=== PATIENT | male | born 1980 | race Caucasian/White ===

== ENCOUNTER 2018-03-09 23:18 | Observation (INO) ==
[2018-03-10] MEDS ORDERED: D5% in 0.45% NACL 1,000 ML IVC PRN (00:06)
[2018-03-10] MEDS ORDERED: Acetaminophen 325 MG TABLET PO PRN (00:06)
[2018-03-10] MEDS ORDERED: Ondansetron 4 MG/2 ML VIAL IVP PRN (00:06)
[2018-03-10] MEDS ORDERED: *HR* Dextrose 50 % in Water (Syg) 50 ML SYRINGE IVP PRN ×2 (00:06→02:28)
[2018-03-10] MEDS ORDERED: Naloxone 0.4 MG/ML INJ IVP PRN (00:06)
[2018-03-10] MEDS ORDERED: D5% in 0.45% NACL w KCl 20 MEQ/1,000 ML MLS IVC PRN (00:06)
--- NOTE | 2018-03-10 00:06 | Internal Med History&Physical ---
Date of Encounter: 03/10/18 Time of Encounter: 00:03 Internal Medicine - H&P: HPI Chief complaint: High blood glucose Admitted From: Intrahospital Transfer ([facility]) History of present illness: Mr. Downing is a 37 year old male with a PMH of type 2 diabetes and tobacco dependence who was transferred from [facility] secondary to DKA. Patient reports being out of his insulin for 2 weeks now and has not gotten around to calling his PCP office for a refill on this insulin because "he has not felt like it". He reports associated nausea and chills for a few days. He also reports 45 lbs weight loss in the past 1 month due to decreased appetite. Patient denies suicidal ideation, fever, SOB, CP, abd pain, diarrhea, constipation, prior episodes of DKA, night sweats, sick contacts, history of HIV exposure, recent incarceration, or recent illness. Past Med Surg Social Fam HX - Past Medical History Medical history: diabetes, hepatitis ( Hepatitis C has been treated and cured), migraine Additional medical history: TBI, deaf in right ear, Electocuted, Right forearm amputated, Broken neck x3 places, L leg broken 1999, MSSA Psychiatric history: anxiety, depression, PTSD - Past Surgical History Surgical History: other (Multiple orthopedic surgeries) Additional surgical history: right forearm amputation, head sx, nerve graft to neck & arms, Nerve graft right orthodoxy, Right eye surgery double vision, Skin graft, Bone graft right ankle, Ankle fx. with hardware - Social History Smoking Status: Current every day smoker Smokeless Tobacco Status: No Alcohol use: none Drug use: marijuana Current living situation: Home Activity Level: Independent ambulation - Family History Father Hx Family Cardiac Disorders: Yes (HTN) Mother Hx Family Cardiac Disorders: Yes (HTN) Internal Medicine - H&P: Meds OxyCODONE/APAP 7.5/325 [Percocet 7.5/325] 2 each PO Q6HR 04/09/15 [History] Pregabalin [Lyrica] 300 mg PO BID 04/09/15 [History] clonazePAM [Clonazepam] 0.5 mg PO BID 12/27/17 [History] Metformin HCl [Glucophage] 1,000 mg PO BID 01/02/18 [History] Insulin NPH/REG 70/30 [HumuLIN 70/30 VIAL] 0 unit SQ BIDWM 03/09/18 [History] 3 Allergy/AdvReac Type Severity Reaction Status Date / Time No Known Allergies Allergy Verified 01/02/18 00:49 All Systems PM: A 10-system review of systems was performed and is negative for pertinent findings except as documented above in the HPI. - Constitutional Constitutional: anorexia, chills, fatigue, lethargy, weight loss, no fever(s), no night sweats - EENT Eyes: no blurry vision, no change in vision Nose, mouth and throat: no sinus pain, no sore throat - Cardiovascular Cardiovascular ROS IM: no chest pain, no dyspnea, no dyspnea on exertion, no edema, no orthopnea, no palpitations - Respiratory Respiratory: no cough, no wheezing, no chest congestion - Gastrointestinal Gastrointestinal: nausea, no abdominal pain, no diarrhea, no vomiting - Genitourinary Genitourinary ROS male: no dysuria, no urinary frequency, no urinary urgency - Musculoskeletal Musculoskeletal ROS IM: no numbness, no tingling - Integumentary Integumentary IM: no erythema, no rash - Neurological Neurological ROS: no numbness, no tingling - Psychiatric Psychiatric: no anxiety, no depression, no suicidal ideation - Endocrine Endocrine IM: fatigue, no polydipsia, no polyphagia, no polyuria - Hematologic/Lymphatic Hematologic/Lymphatic: no easy bleeding, no easy bruising - Constitutional General appearance: Present: cachectic, mild distress, A&O X 3, answers questions appropriately Exam: ill appearing, lethargic, arousable - Head Head exam: Present: atraumatic Additional comments: temporal wasting - Eye Eye exam: Present: EOMI, conjuntiva pink, sclera anicteric - ENT ENT exam: Present: mucous membranes dry, normal oropharynx - Neck Neck exam general surgery: Present: normal inspection, supple, trachea midline. Absent: lymphadenopathy - Respiratory Respiratory exam: Present: CTAB. Absent: accessory muscle use, rales, respiratory distress, rhonchi, wheezes - Cardiovascular Cardiovascular exam: Present: RRR, +S1, +S2. Absent: diastolic murmur, gallop, rubs, systolic murmur - GI/Abdominal GI/Abdominal exam: Present: normal bowel sounds, soft, no peritoneal signs. Absent: distended, tenderness - Extremities Exam Extremities exam: Present: warm, radial pulses palpable and symmetrical. Absent : calf tenderness, cyanotic, pedal edema Additional comments: loss of subcuticular fat, loss of muscle mass - Back Exam Back exam: Absent: paraspinal tenderness, tenderness - Neurological Exam Neurological exam: Present: CN II-XII intact, oriented X3, no focal deficits. Absent: pronater drift, facial droop, speech deficit - Psychiatric Psychiatric exam: Present: depressed, flat affect - Skin Skin exam: Present: dry, intact. Absent: erythema, rash Internal Med - H&P Results - Labs CBC & Chem 7: 03/10/18 01:41 - Pulse Oximetry Interpretation Digit-Finger O2 Sat by Pulse Oximetry: 100 (On RA) - Assessment and plan (1) Severe protein-calorie malnutrition Current Visit: Yes Status: Acute Assessment and plan: Patient with temporal wasting, loss of subcuticular fat, loss of muscle mass, 45 lbs weight loss in the past 1 month due to decreased appetite, insufficient energy intake Nutrition consulted for dietary supplementation (2) DKA (diabetic ketoacidoses) Current Visit: No Status: Resolved Assessment and plan: Started on Insulin drip at [facility] Beta-Hydroxybutyric Acid elevated > 2, Initial anion gap 16, repeat anion gap 8 closed, started Levemir 1 hour before stopping insulin drip Continue close monitoring, Monitor BMP and accuchecks, Supplement potassium as needed Qualifiers: Diabetes mellitus type: type 2 Diabetes mellitus complication detail: without coma Qualified Code(s): E11.10 - Type 2 diabetes mellitus with ketoacidosis without coma (3) Diabetes mellitus Current Visit: No Status: Chronic Assessment and plan: HGB a1c pending Continue insulin and accuchecks Qualifiers: Diabetes mellitus type: type 2 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 He states his blood sugars been running progressively higher equipment services associate consulted (5) Anxiety and depression Current Visit: Yes Status: Chronic Assessment and plan: Patient has not called his PCP office for a refill on this insulin because "he has not felt like it". He denies suicidal ideation. Patient takes Clonazepam at home. (6) Opiate dependence Current Visit: Yes Status: Chronic Assessment and plan: Patient takes Oxycodone 15mg PO QID Resume home meds Qualifiers: Substance use status: uncomplicated Qualified Code(s): F11.20 - Opioid dependence, uncomplicated (7) Tobacco dependence Current Visit: No Status: Chronic Assessment and plan: Tobacco cessation discussed, likely underlying COPD, Duonebs ordered prn Nicotine patch ordered prn (8) DVT prophylaxis Current Visit: No Status: Acute Assessment and plan: Heparin subcutaneous BID - Time Spent With Patient Total time spent is greater than 50% in coordination of care (as documented) at patient's floor/unit and/or counseling patient:
[2018-03-10] MEDS ORDERED: Nicotine 7 MG PATCH.TD24 TD SCH (00:15)
[2018-03-10] MEDS ORDERED: Insulin Human Regular 100 UNIT in 0.9 % Sodium Chloride 100 ML IVC SCH (00:15)
[2018-03-10] MEDS: 0.45 % Sodium Chloride w/KCl 20 MEQ/1,000 ML MLS IVC SCH ×8 (01:13→18:25)
[2018-03-10] MEDS ORDERED: Ipratropium/Albuterol Neb 3 ML IH PRN (01:54)
[2018-03-10 02:15] LABS: BUN/Creatinine Ratio 16 (6-26); Blood Urea Nitrogen 14 mg/dL (6-20); Calcium 8.9 mg/dL (8.6-10.3); Carbon Dioxide 17 mEq/L (23-29); Chloride 110 mEq/L (98-107); Glucose 331 mg/dL (70-105); Osmolality,Calculated 293 (280-300); Potassium 3.3 mEq/L (3.5-5.1); Sodium 135 mEq/L (136-145); eGFR For Non-African Americans > 60 (> 60)
[2018-03-10] MEDS ORDERED: *HR* OxyCODONE/APAP 7.5/325 TABLET PO PRN (02:24)
[2018-03-10] MEDS ORDERED: D5% in Water 1,000 ML IVC PRN (02:28)
[2018-03-10] MEDS ORDERED: Dextrose Gel 15 GM/37.5 ML TUBE PO PRN ×2 (02:28)
[2018-03-10] MEDS: Insulin DETEMIR 100 UNIT/ML X5UNITS SQ SCH ×2 (03:05→19:44)
[2018-03-10] MEDS: *HR* Heparin 5,000 UNIT/ML VIAL SQ SCH ×2 (05:37→17:44)
[2018-03-10 05:58] LABS: Hematocrit 34.9 % (37.5-50.1); Hemoglobin 12.7 g/dL (12.9-16.9); Mean Corpuscular HGB Conc 36.4 g/dL (31.6-35.5); Mean Corpuscular Hemoglobin 31.3 pg (28.0-33.3); Mean Platelet Volume 9.6 fL (9.4-12.4); Platelet Count 160 K/mcL (140-400); Red Blood Count 4.06 M/mcL (4.19-5.50); Red Cell Distribution Width 13.6 % (11.5-14.5)
[2018-03-10 06:13] LABS: BUN/Creatinine Ratio 18 (6-26); Blood Urea Nitrogen 13 mg/dL (6-20); Carbon Dioxide 16 mEq/L (23-29); Chloride 111 mEq/L (98-107); Glucose 264 mg/dL (70-105); Magnesium 2.1 mg/dL (1.6-2.6); Osmolality,Calculated 293 (280-300); Potassium 3.3 mEq/L (3.5-5.1); Sodium 137 mEq/L (136-145); eGFR For Non-African Americans > 60 (> 60)
[2018-03-10 07:27] LABS: Estimated Average Glucose 410 mg/dl; Hemoglobin A1C 15.9 %
[2018-03-10] MEDS: Insulin LISPRO 300 UNITS/3 ML VIAL SQ SCH ×3 (08:23→16:28)
[2018-03-10] MEDS: *HR* OxyCODONE/APAP 7.5/325 TABLET PO PRN ×2 (08:24→19:43)
--- NOTE | 2018-03-10 12:12 | Discharge Summary ---
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 Diabetes mellitus complication status: with ketoacidosis Diabetes mellitus complication detail: without coma Qualified Code(s): E11.10 - Type 2 diabetes mellitus with ketoacidosis without coma; Z79.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 of insulin (3) Medical non-compliance Priority: Primary Status: Acute (4) Tobacco dependence Priority: Secondary Status: Chronic (5) Severe protein-calorie malnutrition Priority: Secondary Status: Acute (6) Opiate dependence Priority: Secondary Status: Chronic Qualifiers: Substance use status: uncomplicated Qualified Code(s): F11.20 - Opioid dependence, uncomplicated (7) Anxiety and depression Priority: Secondary Status: Chronic Hospital course: Patient is a 37-year-old male with past medical history significant for diabetes and tobacco dependence who was transferred from [facility] secondary to DKA. Patient admits of not taking his insulin as directed due to feelings of depression although he denies any suicidal ideation. Patient realizes now that he needs to take his insulin for proper management and decided to come to the ER for evaluation. He was admitted to the progressive unit for DKA management. Patients DKA resolved overnight and was restarted on his home insulin regimen. Patient will be discharged to continue his current diabetic regimen and to follow-up with primary care provider. - Time Spent with Patient Total time spent providing and/or coordinating discharge services: Less than 30 minutes - Discharge Medications Prescriptions: Insulin DETEMIR [Levemir] 10 unit SQ HS #30 [id number] Home Medications: Pregabalin [Lyrica] 300 mg PO BID 04/09/15 [History] clonazePAM [Clonazepam] 0.5 mg PO BID 12/27/17 [History] Metformin HCl [Glucophage] 1,000 mg PO BID 01/02/18 [History] Insulin NPH/REG 70/30 [HumuLIN 70/30 VIAL] 0 unit SQ BIDWM 03/09/18 [History] Insulin DETEMIR [Levemir] 10 unit SQ HS #30 [id number] 03/10/18 [Rx] Oxycodone HCl [Roxybond] 15 mg PO QID PRN 03/10/18 [History] Allergies/Adverse Reactions: 3 Allergy/AdvReac Type Severity Reaction Status Date / Time No Known Allergies Allergy Verified 01/02/18 00:49 Date of admission: 03/10/18 00:30 Primary care physician: PCP NONE Consults: 03/10/18 00:12 Consult to Scientific Research Manager [CONS] Routine Reason for SW Consult: DKA, unable to get insulin 03/10/18 02:11 Consult to Nutrition [CONS] Routine Comment: Consulting Provider: NUTRITION Reason for Dietary Consult: PO Supplementation - Constitutional Vitals: Temp Pulse Resp BP Pulse Ox 98.4 F 94 12 112/80 98 03/10/18 11:26 03/10/18 11:26 03/10/18 11:26 03/10/18 11:26 03/10/18 11:26 General appearance: Present: cachectic, mild distress, A&O X 3, answers questions appropriately Exam: Gen.: Nonacute distress, alert and oriented 3 ENT: Mucosal membranes moist Respiratory: Lungs are clear to auscultation bilaterally without any wheezing rhonchi or rales Cardiovascular: Normal S1 and S2 regular rate rhythm no murmurs rubs or gallops Abdomen: Soft, nontender and nondistended with positive bowel sounds Extremities: No lower extremity edema Skin: Normal color - Patient Status Disposition: Home, Self-Care - Discharge Instructions Instructions: Diabetes Mellitus Type 2 in Adults (DC), Anxiety (DC) Follow Up With: Mike Russell, [employer]ER [Advanced Practice Nurse] - 03/16/18 1:00 pm
[2018-03-10] MEDS ORDERED: Insulin Regular, Human 100 UNIT/ML SQ ONE (18:09)
[2018-03-10] MEDS ORDERED: Insulin LISPRO 300 UNITS/3 ML VIAL SQ ONE (18:15)
[2018-03-10] MEDS ORDERED: Insulin LISPRO 300 UNITS/3 ML VIAL SQ SCH (21:00)
[2018-03-11 00:09] VITALS: BP 102/74
== END 2018-03-11 02:50 | disposition home or self-care (01) ==
LOC: 2NNU → SUATTDRO 03-10 00:30
PROVIDERS: ADMIT Family Medicine; ATTEND Hospitalist

== ENCOUNTER 2020-07-29 22:55 | Observation (INO) ==
[2020-07-29 23:43] LABS: Basophils # 0.1 K/mcL (0.0-0.2); Basophils % 1.2 %; Eosinophils # 0.1 K/mcL (0.0-0.6); Eosinophils % 0.6 %; Hematocrit 44.2 % (37.5-50.1); Hemoglobin 14.8 g/dL (12.9-16.9); Immature Granulocytes % 0.4 % (0-4); Lymphocytes # 3.1 K/mcL (0.6-4.6); Lymphocytes % 37.3 %; Mean Corpuscular HGB Conc 33.5 g/dL (31.6-35.5); Mean Corpuscular Hemoglobin 30.1 pg (28.0-33.3); Monocytes # 0.8 K/mcL (0.0-1.3); Monocytes % 9.1 %; Neutrophils # 4.3 K/mcL (1.6-8.9); Platelet Count 244 K/mcL (140-400); Red Blood Count 4.91 M/mcL (4.19-5.50); Red Cell Distribution Width 13.2 % (11.5-14.5); Segmented Neutrophils % 51.4 %; White Blood Count 8.3 K/mcL (4.3-11.1)
[2020-07-29 23:44] LABS: VBG HCO3 25 mEq/L (21-27); VBG PCO2 50 mmHg (41-51); VBG PO2 49 mmHg (25-50)
[2020-07-29] MEDS: 0.9 % Sodium Chloride 1,000 ML IVC SCH (23:53)
[2020-07-30 00:12] LABS: Alanine Aminotransferase 41 Units/L (7-52); Albumin/Globulin Ratio 1.1 (1.1-2.2); Alkaline Phosphatase 95 Units/L (34-104); Aspartate Amino Transferase 21 Units/L (13-39); BUN/Creatinine Ratio 19 (6-26); Bilirubin,Total 1.4 mg/dL (0.3-1.0); Blood Urea Nitrogen 17 mg/dL (6-20); Calcium 9.5 mg/dL (8.6-10.3); Carbon Dioxide 23 mEq/L (23-29); Chloride 90 mEq/L (98-107); Globulin 3.7 g/dL (2.4-3.5); Glucose 532 mg/dL (70-105); Magnesium 1.7 mg/dL (1.6-2.6); Osmolality,Calculated 292 (280-300); Phosphorous 3.4 mg/dL (2.7-4.5); Potassium 4.4 mEq/L (3.5-5.1); Sodium 128 mEq/L (136-145); Total Protein 7.7 g/dL (6.4-8.9); eGFR For African Americans > 60 (> 60); eGFR For Non-African Americans > 60 (> 60)
[2020-07-30] MEDS: 0.9 % Sodium Chloride 1,000 ML IVC SCH ×2 (00:24→04:08)
[2020-07-30 00:43] LABS: Adenovirus Not Detected (Not Detect); Bordetella Pertussis Not Detected (Not Detect); Chlamydophila pneumoniae Not Detected (Not Detect); Coronavirus 229E Not Detected (Not Detect); Coronavirus HKU1 Not Detected (Not Detect); Coronavirus NL63 Not Detected (Not Detect); Coronavirus OC43 Not Detected (Not Detect); Human Metapneumovirus Not Detected (Not Detect); Human Rhinovirus/Enterovirus Not Detected (Not Detect); Influenza A Subtype 2009 H1 Not Detected (Not Detect); Influenza B Not Detected (Not Detect); Mycoplasma pneumoniae Not Detected (Not Detect); Parainfluenza Virus 1 Not Detected (Not Detect); Parainfluenza Virus 2 Not Detected (Not Detect); Parainfluenza Virus 3 Not Detected (Not Detect); Parainfluenza Virus 4 Not Detected (Not Detect); Respiratory Syncytial Virus Not Detected (Not Detect); SARS-CoV-2 Not Detected (Not Detect)
[2020-07-30] MEDS ORDERED: Insulin Human Regular 6 UNIT in 0.9 % Sodium Chloride 10 ML IV ONE (01:12)
[2020-07-30 01:54] LABS: Bacteria,Urine Few per hpf (None-Few); Bilirubin,Urine Negative (Negative); Blood,Urine Negative (Negative); Clarity,Urine Clear (Clear); Color,Urine Colorless (Yellow); Glucose,Urine (UA) >=1000 mg/dL (Normal); Ketones,Urine 40 mg/dL (Negative); Leukocyte Esterase,Urine Negative (Negative); Mucus,Urine Few per lpf (None-Few); Nitrite,Urine Negative (Negative); Protein,Urine Negative (Neg-Trace); RBC,Urine 0-3 per hpf (0-3); Specific Gravity,Urine > 1.030 (1.010-1.025); Squamous Epithelial Cell,Urine Few per hpf (None-Few); Urobilinogen,Urine Normal (Normal); WBC,Urine 0-3 per hpf (0-3)
[2020-07-30 02:05] LABS: Amphetamine Screen,Urine Positive ng/mL (Cutoff=1000); Barbiturate Screen,Urine Negative ng/mL (Cutoff=200); Benzodiazepines Screen,Urine Negative ng/mL (Cutoff=200); Cannabinoid Screen,Urine Positive ng/mL (Cutoff = 50); Cocaine Screen,Urine Negative ng/mL (Cutoff= 300); Opiate Screen,Urine Negative ng/mL (Cutoff=300); Phencyclidine Screen,Urine Negative ng/mL (Cutoff=25)
[2020-07-30] MEDS ORDERED: Ondansetron ODT 4 MG TAB.RAPDIS SL PRN (02:12)
[2020-07-30] MEDS ORDERED: Acetaminophen 325 MG TABLET PO PRN (02:12)
[2020-07-30] MEDS ORDERED: Naloxone 0.4 MG/ML INJ IVP PRN (02:12)
[2020-07-30] MEDS ORDERED: D5% in Water 1,000 ML IVC PRN (02:14)
[2020-07-30] MEDS ORDERED: Dextrose Gel 15 GM/37.5 ML TUBE PO PRN ×2 (02:14)
[2020-07-30] MEDS ORDERED: *HR* Dextrose 50 % in Water (Vial) 50 ML VIAL IVP PRN (02:14)
[2020-07-30 02:41] LABS: Estimated Average Glucose 306 mg/dl; Hemoglobin A1C 12.3 %
[2020-07-30] MEDS: Insulin LISPRO 300 UNITS/3 ML VIAL SUBQ SCH ×6 (04:09→20:48)
[2020-07-30 05:06] LABS: Basophils # 0.1 K/mcL (0.0-0.2); Basophils % 0.9 %; Eosinophils # 0.1 K/mcL (0.0-0.6); Eosinophils % 0.7 %; Hematocrit 38.6 % (37.5-50.1); Hemoglobin 13.4 g/dL (12.9-16.9); Immature Granulocytes % 0.2 % (0-4); Lymphocytes # 2.6 K/mcL (0.6-4.6); Mean Corpuscular HGB Conc 34.7 g/dL (31.6-35.5); Mean Corpuscular Volume 89.4 fL (83.0-100.0); Mean Platelet Volume 10.1 fL (9.4-12.4); Monocytes # 0.9 K/mcL (0.0-1.3); Monocytes % 9.2 %; Neutrophils # 5.7 K/mcL (1.6-8.9); Platelet Count 232 K/mcL (140-400); Red Blood Count 4.32 M/mcL (4.19-5.50); White Blood Count 9.4 K/mcL (4.3-11.1)
[2020-07-30 05:33] LABS: BUN/Creatinine Ratio 24 (6-26); Blood Urea Nitrogen 17 mg/dL (6-20); Calcium 8.8 mg/dL (8.6-10.3); Carbon Dioxide 22 mEq/L (23-29); Chloride 101 mEq/L (98-107); Glucose 366 mg/dL (70-105); Magnesium 1.8 mg/dL (1.6-2.6); Osmolality,Calculated 290 (280-300); Phosphorous 2.7 mg/dL (2.7-4.5); Potassium 3.8 mEq/L (3.5-5.1); Sodium 132 mEq/L (136-145); eGFR For African Americans > 60 (> 60); eGFR For Non-African Americans > 60 (> 60)
[2020-07-30 05:46] LABS: Thyroid Stimulating Hormone 1.372 mcIU/mL (0.340-5.600)
[2020-07-30] MEDS ORDERED: Insulin Human Regular 10 UNIT in 0.9 % Sodium Chloride 10 ML IV ONE (06:38)
[2020-07-30] MEDS ORDERED: Insulin LISPRO 300 UNITS/3 ML VIAL SUBQ ONE (06:45)
[2020-07-30] MEDS: Pregabalin 75 MG CAPSULE PO SCH ×2 (08:24→20:48)
[2020-07-30] MEDS: Nicotine 14 MG PATCH.TD24 TD SCH (08:25)
[2020-07-30] MEDS ORDERED: Insulin DETEMIR 100 UNIT/ML X5UNITS SUBQ SCH (21:00)
[2020-07-31 05:04] LABS: Hematocrit 36.7 % (37.5-50.1); Hemoglobin 12.7 g/dL (12.9-16.9); Mean Corpuscular HGB Conc 34.6 g/dL (31.6-35.5); Mean Corpuscular Hemoglobin 30.3 pg (28.0-33.3); Mean Corpuscular Volume 87.6 fL (83.0-100.0); Mean Platelet Volume 9.7 fL (9.4-12.4); Platelet Count 202 K/mcL (140-400); Red Blood Count 4.19 M/mcL (4.19-5.50); Red Cell Distribution Width 12.8 % (11.5-14.5); White Blood Count 6.7 K/mcL (4.3-11.1)
[2020-07-31 05:22] LABS: Alanine Aminotransferase 35 Units/L (7-52); Albumin 3.6 g/dL (3.5-5.7); Albumin/Globulin Ratio 1.3 (1.1-2.2); Alkaline Phosphatase 74 Units/L (34-104); Aspartate Amino Transferase 22 Units/L (13-39); BUN/Creatinine Ratio 25 (6-26); Bilirubin,Total 0.9 mg/dL (0.3-1.0); Blood Urea Nitrogen 13 mg/dL (6-20); Calcium 8.7 mg/dL (8.6-10.3); Carbon Dioxide 25 mEq/L (23-29); Chloride 100 mEq/L (98-107); Globulin 2.8 g/dL (2.4-3.5); Glucose 260 mg/dL (70-105); Osmolality,Calculated 281 (280-300); Potassium 3.6 mEq/L (3.5-5.1); Sodium 131 mEq/L (136-145); Total Protein 6.4 g/dL (6.4-8.9); eGFR For African Americans > 60 (> 60); eGFR For Non-African Americans > 60 (> 60)
[2020-07-31 06:47] VITALS: BP 131/94
[2020-07-31] MEDS: 0.9 % Sodium Chloride 1,000 ML IVC SCH (07:24)
[2020-07-31] MEDS: Nicotine 14 MG PATCH.TD24 TD SCH (08:57)
[2020-07-31] MEDS: Pregabalin 75 MG CAPSULE PO SCH (08:57)
[2020-07-31] MEDS: Insulin LISPRO 300 UNITS/3 ML VIAL SUBQ SCH (08:59)
== END 2020-07-31 11:47 | disposition home or self-care (01) ==
LOC: EMEROOARM 22:55 → 3BNU 22:55 → SUATTDRO 07-30 01:41 → 3BNU 07-30 02:44
PROVIDERS: ADMIT Family Medicine; ATTEND Registered Nurse